=== PATIENT | male | born 1940 | race Caucasian/White ===

== ENCOUNTER 2017-02-16 16:39 | Emergency (ER) | payer OTHER ==
--- NOTE | 2017-02-16 17:21 | EDPHY ---
H & P Stated Complaint: [place] inj l [place] last [place]/xrays nl/pain and swelling Time Seen by Provider: 02/16/17 16:58 HPI/ROS: CHIEF COMPLAINT: Knee pain HISTORY OF PRESENT ILLNESS: The patient is a 76-year-old man who comes to the emergency department complaining of pain and swelling in his left knee. He states that 1 week ago he fell onto a kneeling position. He went to the urgent care and got x-rays that were negative. Since that time he has had increased swelling and has developed mild erythema. He had an abrasion in that location as well. He hit his elbow on head but is not concerned about them. He is able to ambulate. He is not on blood thinners other than aspirin. REVIEW OF SYSTEMS: Constitutional: denies: chills, fever, recent illness, recent injury EENTM: denies: blurred vision, double vision, nose congestion Respiratory: denies: cough, shortness of breath Cardiac: denies: chest pain, irregular heart rate, lightheadedness, palpitations Gastrointestinal/Abdominal: denies: abdominal pain, diarrhea, nausea, vomiting, blood streaked stools Genitourinary: denies: dysuria, frequency, hematuria, pain Musculoskeletal: See HPI Skin: denies: lesions, rash, jaundice, bruising Neurological: denies: headache, numbness, paresthesia, tingling, dizziness, weakness Hematologic/Lymphatic: denies: blood clots, easy bleeding, easy bruising Immunologic/allergic: denies: HIV/AIDS, transplant EXAM: GENERAL: Well-appearing, well-nourished and in no acute distress. HEAD: Atraumatic, normocephalic. EYES: Pupils equal round and reactive to light, extraocular movements intact, sclera anicteric, conjunctiva are normal. ENT: TMs normal, nares patent, oropharynx clear without exudates. Moist mucous membranes. NECK: Normal range of motion, supple without lymphadenopathy or JVD. LUNGS: Breath sounds clear to auscultation bilaterally and equal. No wheezes rales or rhonchi. HEART: Regular rate and rhythm without murmurs, rubs or gallops. ABDOMEN: Soft, nontender, normoactive bowel sounds. No guarding, no rebound. No masses appreciated. BACK: No CVA tenderness, no spinal tenderness, step-offs or deformities EXTREMITIES: The patient has a patellar bursa swelling on exam. Mild bruising and erythema around an abrasion on the medial aspect of his knee. Mild edema distally. NEUROLOGICAL: Cranial nerves II through XII grossly intact. Normal speech, normal gait. 5/5 strength, normal movement in all extremities, normal sensation PSYCH: Normal mood, normal affect. SKIN: Warm, dry, normal turgor, no visible rashes or lesions. Source: Patient Exam Limitations: No limitations - Personal History Current Tetanus/Diphtheria Vaccine: Unsure - Medical/Surgical History Hx Asthma: No Hx Chronic Respiratory Disease: No Hx Diabetes: No Hx Cardiac Disease: Yes Hx Renal Disease: No Hx Cirrhosis: No Hx Alcoholism: No Hx HIV/AIDS: No Hx Splenectomy or Spleen Trauma: No Other PMH: cardiac stent, cholesterol, appendectomy, prostate CA - Family History Significant Family History: No pertinent family hx - Social History Smoking Status: Never smoked Alcohol Use: Sober Drug Use: None Constitutional: Initial Vital Signs Temperature (C) 36.6 C 02/16/17 16:42 Heart Rate 70 02/16/17 16:42 Respiratory Rate 20 02/16/17 16:42 Blood Pressure 132/70 H 02/16/17 16:42 O2 Sat (%) 93 02/16/17 16:42 O2 Delivery Mode Room Air,Hi-Flow Nasal Cannula Allergies/Adverse Reactions: No Known Allergies Allergy (Verified 02/16/17 16:40) Home Medications: Medication Instructions Recorded Aspirin [Aspirin 325 mg (OTC)] 04/29/14 Simvastatin [Zocor 20 mg] 04/29/14 Sulfamethox/Tmp 800/160 mg 1 tab PO BID #14 tab 02/16/17 [Bactrim Ds] Medical Decision Making Procedures: Ultrasound bedside: Limited ultrasound performed the patient's knee. A significant amount of fluid found in the prepatellar bursa. No visible knee effusion. ED Course/Re-evaluation: On exam and ultrasound the patient appears to have a traumatic prepatellar bursitis. I did attempt aspirated and found dark thick blood. We will send to lab for cultures. It does not appear infected. He does appear to have a mild cellulitis versus is contusion. I will start him on antibiotics. We discussed follow-up as well as indications for returning. We will place him in an Andre wrap for compression. Differential Diagnosis: Partial list of the Differential diagnosis considered include but were not limited to; prepatellar bursitis, hemorrhagic effusion, cellulitis, septic joint and although unlikely based on the history and physical exam, I also considered fracture, dislocation. I discussed these differential diagnoses and the plan with the patient as well as the usual and expected course. The patient understands that the diagnosis is provisional and that in medicine we are not always correct and that further workup is often warranted. Usual and customary warnings were given. All of the patient's questions were answered. The patient was instructed to return to the emergency department should the symptoms at all worsen or return, otherwise to followup with the physician as we discussed. - Data Points Microbiology Results: MICROBIOLOGY 02/16/17 17:16 Synovial Fluid - Aspirate Gram Stain - Final Medications Given: Discontinued Medications Trimethoprim/Sulfamethoxazole (Bactrim Ds) 1 ea PO EDNOW ONE PRN Reason: Protocol Stop: 02/16/17 17:23 Last Admin: 02/16/17 17:37 Dose: 1 ea Departure - Departure Disposition: Home, Routine, Self-Care Clinical Impression: Prepatellar bursitis of left knee Cellulitis Qualifiers: Site of cellulitis: extremity Site of cellulitis of extremity: lower extremity Laterality: left Qualified Code(s): L03.116 - Cellulitis of left lower limb Condition: Fair Instructions: Cellulitis (ED), Knee Bursitis (ED) Referrals: Felix Cr MD [Primary Care Provider] - As per Instructions Jim Arnold MD [Medical Doctor] - As per Instructions Prescriptions: Sulfamethox/Tmp 800/160 mg [Bactrim Ds] 1 tab PO BID #14 tab
[2017-02-16] MEDS ORDERED: SULFAMETHOX/TMP 800/160 MG 1 TAB PO ONE (17:22)
[2017-02-16 18:18] VITALS: BP 104/73; PULSE 60; RESP 15; TEMP 98.6; O2SAT 95
== END 2017-02-16 18:17 | disposition home or self-care (01) ==
PROC: 0S9C3ZX Drainage of Right Knee Joint, Percutaneous Approach, Diagnostic (ICD-10-PCS; principal; 2017-02-16)
DX: M70.42 Prepatellar bursitis, left knee (principal); L03.116 Cellulitis of left lower limb; Z79.82 Long term (current) use of aspirin; Z85.46 Personal history of malignant neoplasm of prostate; Z95.5 Presence of coronary angioplasty implant and graft

== ENCOUNTER → 2017-07-09 | Outpatient (CLI) | payer OTHER | LOC: FIMAGING 07:56 | PROVIDERS: ATTEND Orthopaedic Surgery | DX: M17.0 Bilateral primary osteoarthritis of knee (principal); M22.42 Chondromalacia patellae, left knee; M76.892 Other specified enthesopathies of left lower limb, excluding foot ==

== ENCOUNTER → 2017-10-05 | Outpatient (CLI) | payer OTHER | LOC: BMCIMAGING 09:56 | PROVIDERS: ATTEND Internal Medicine | DX: Z13.820 Encounter for screening for osteoporosis (principal); M85.89 Other specified disorders of bone density and structure, multiple sites ==

== ENCOUNTER → 2018-05-17 | Outpatient (CLI) | payer OTHER | LOC: FIMAGING 13:07 | PROVIDERS: ATTEND Internal Medicine | DX: R59.1 Generalized enlarged lymph nodes (principal); J84.10 Pulmonary fibrosis, unspecified; M47.815 Spondylosis without myelopathy or radiculopathy, thoracolumbar region ==